=== PATIENT | female | born 2000 | race Hispanic/Latino ===

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

== ENCOUNTER 2018-02-03 23:48 | Emergency (ER) | payer OTHER ==
[2018-02-04] MEDS ORDERED: Amoxicillin 125 mg/5 ml Oral Suspension ONE (00:15)
[2018-02-04] MEDS ORDERED: AMOXicillin 250 MG CAP ONE (00:15)
[2018-02-04] MEDS ORDERED: Ibuprofen 200 MG TAB ONE ×2 (00:16→00:18)
== END 2018-02-04 00:17 | disposition home or self-care (01) ==
LOC: BURERS 23:48
DX: J03.90 Acute tonsillitis, unspecified (principal)
CPT/HCPCS: 99282

== ENCOUNTER 2018-04-28 13:30 | Emergency (ER) | payer OTHER ==
[2018-04-28] MEDS ORDERED: Acetaminophen 500 MG TAB ONE (14:28)
== END 2018-04-28 15:04 | disposition home or self-care (01) ==
LOC: BURERS 13:30
DX: S39.012A Strain of muscle, fascia and tendon of lower back, initial encounter (principal); Z33.1 Pregnant state, incidental; X50.1XXA Overexertion from prolonged static or awkward postures, initial encounter
CPT/HCPCS: 99283

== ENCOUNTER 2019-02-02 17:08 | Emergency (ER) | payer OTHER, SELFPAY ==
[2019-02-02] MEDS ORDERED: predniSONE 20 MG TAB ONE (17:33)
== END 2019-02-02 17:46 | disposition home or self-care (01) ==
LOC: BURERS 17:08
DX: G51.0 Bell's palsy (principal)
CPT/HCPCS: 99283; J7512

== ENCOUNTER 2019-06-18 19:05 | Emergency (ER) | payer OTHER, SELFPAY ==
[2019-06-18] MEDS ORDERED: predniSONE 20 MG TAB ONE (20:02)
== END 2019-06-18 20:05 | disposition home or self-care (01) ==
LOC: BURERS 19:05
DX: L25.9 Unspecified contact dermatitis, unspecified cause (principal); G51.0 Bell's palsy
CPT/HCPCS: 99283; J7512

== ENCOUNTER 2022-04-16 16:55 | Emergency (ER) | payer OTHER ==
[2022-04-16] MEDS ORDERED: Ibuprofen 800 MG TAB PO ONE (16:56)
[2022-04-16] MEDS ORDERED: Ondansetron PF 4 MG/2 ML Vial IVP ONE (16:56)
[2022-04-16] MEDS ORDERED: Iopamidol 370 76% 100 ML VIAL FS ONE (16:56)
[2022-04-16 17:51] LABS: ALT (SGPT) 69 U/L (8-55); AST (SGOT) 55 U/L (5-34); Albumin 4.1 g/dL (3.5-5.0); Alkaline Phosphatase 76 U/L (40-110); Anion Gap 18 mmol/L (10-20); BUN (Urea Nitrogen) 15 mg/dL (7.0-18.7); Bilirubin, Total 0.6 mg/dL (0.2-1.2); Calc. Creatinine Clearance 0 mL/min (70-130); Carbon Dioxide 20 mmol/L (22-29); Chloride 104 mmol/L (98-107); Estimated GFR 126; Globulin 3.7 g/dL (2.4-3.5); Glucose 116 mg/dL (70-105); Potassium 3.9 mmol/L (3.5-5.1); Protein, Total 7.8 g/dL (6.0-8.3); Sodium 138 mmol/L (136-145)
[2022-04-16 17:53] LABS: Hemoglobin 15.2 g/dL (12.0-16.0); Mean Corpuscular HGB CONC 31.8 g/dL (32.0-36.0); Mean Corpuscular Hemoglobin 28.1 pg (27.0-31.0); Mean Corpuscular Volume 88.5 fL (78.0-98.0); Mean Platelet Volume 8.1 fL (7.4-10.4); Platelet Count 276 thou/uL (130-400); RBC Distribution Width 12.5 % (11.5-14.5); White Blood Cell (WBC) Count 14.2 thou/uL (4.8-10.8)
[2022-04-16 17:56] LABS: Band 34 % (5-11); Eosinophils 1 % (0-10); Lymphocytes 13 % (21-51); MDiff Complete? YES; Metamyelocyte 1 % (0-0); Monocytes 8 % (0-10); Neutrophil 40 % (42-75); Reactive Lymphocytes 3 % (0-10)
[2022-04-16 19:22] LABS: Bilirubin Negative (Negative); Blood, Urine Negative (Negative); Clarity Clear (Clear); Glucose, Urine (Dipstick) Negative (Negative); Ketone, Urine Negative (Negative); Leukocyte Negative (Negative); Nitrite Negative (Negative); Protein, Urine (Dipstick) 30 mg/dL (Neg-Trace); Specific Gravity, Urine 1.025 (1.005-1.030); Urobilinogen 0.2 mg/dL (Less than 2); pH, Urine 6.5 (5.0-9.0)
[2022-04-16 19:23] LABS: Bacteria/HPF 1+ HPF (None Seen); Mucous/LPF 1+ LPF (<2+); RBC/HPF 0-3 HPF (0-3); Squamous Epithelial 0-3 HPF (0-3); WBC/HPF 0-3 HPF (0-3)
[2022-04-16 19:24] LABS: Pregnancy Test - Urine (BHCG) Negative (Negative); Pregu Control Background? CLEAR/WHITE (CLR/WHITE); Pregu Control Bar Appear? YES (CONTROL BAR); Specific Gravity 1.025 (1.002-1.036)
[2022-04-16] MEDS ORDERED: Acetaminophen 500 MG TAB ONE (20:18)
[2022-04-16 22:16] LABS: Lactic Acid 1.7 mmol/L (0.5-2.2)
== END 2022-04-16 22:37 | disposition home or self-care (01) ==
LOC: BURERS 16:55
DX: A08.4 Viral intestinal infection, unspecified (principal); E86.0 Dehydration; R00.0 Tachycardia, unspecified; Z86.69 Personal history of other diseases of the nervous system and sense organs; Z79.899 Other long term (current) drug therapy
CPT/HCPCS: 36415; 74177; 80053; 81003; 81015; 81025; 83605; 85025; 87804; 96361; 96374; J2405; Q9967

== ENCOUNTER 2023-10-20 21:27 | Emergency (ER) | payer OTHER ==
[2023-10-20] MEDS ORDERED: Ondansetron PF 4 MG/2 ML Vial ONE (22:13)
[2023-10-20 22:31] LABS: #Basophils 0.1 thou/uL (0.0-0.2); #Lymphocytes 1.3 thou/uL (1.20-3.40); #Monocytes 0.7 thou/uL (0.11-0.59); %Basophils 0.5 % (0.0-1.0); %Eosinophils 0.4 % (0.0-10.0); %Lymphocytes 10.6 % (21.0-51.0); %Neutrophils 82.6 % (42.0-75.0); Hematocrit 38.4 % (36.0-47.0); Hemoglobin 12.8 g/dL (12.0-16.0); Mean Corpuscular HGB CONC 33.3 g/dL (32.0-36.0); Mean Corpuscular Hemoglobin 27.8 pg (27.0-31.0); Mean Corpuscular Volume 83.3 fl (78.0-98.0); Mean Platelet Volume 7.8 fL (7.4-10.4); Platelet Count 280 10x3/uL (130-400); Red Blood Cell (RBC) Count 4.61 mill/uL (4.20-5.40); White Blood Cell (WBC) Count 12.1 10x3/uL (4.8-10.8)
[2023-10-20 22:42] LABS: ALT (SGPT) 21 U/L (8-55); AST (SGOT) 16 U/L (5-34); Albumin 3.7 g/dL (3.5-5.0); Alkaline Phosphatase 79 U/L (40-110); Anion Gap 17 mmol/L (10-20); BUN (Urea Nitrogen) 11 mg/dL (7.0-18.7); Bilirubin, Total 0.6 mg/dL (0.2-1.2); Calc. Creatinine Clearance 0 mL/min (70-130); Carbon Dioxide 19 mmol/L (22-29); Chloride 106 mmol/L (98-107); Estimated GFR 130; Globulin 3.7 g/dL (2.4-3.5); Glucose 98 mg/dL (70-105); Potassium 3.8 mmol/L (3.5-5.1); Protein, Total 7.4 g/dL (6.0-8.3); Sodium 138 mmol/L (136-145)
== END 2023-10-20 23:12 | disposition home or self-care (01) ==
LOC: BURERS 21:27
DX: O21.9 Vomiting of pregnancy, unspecified (principal); O99.282 Endocrine, nutritional and metabolic diseases complicating pregnancy, second trimester; E86.0 Dehydration; O24.112 Pre-existing type 2 diabetes mellitus, in pregnancy, second trimester; Z3A.00 Weeks of gestation of pregnancy not specified
CPT/HCPCS: 80053; 85025; 96361; 96374; J2405